=== PATIENT | female | born 1995 | race Caucasian/White ===

== ENCOUNTER 2019-06-30 12:36 | Emergency (ER) | payer MEDICAID, OTHER ==
[~2019-06-30] VITALS: Ht 160 cm; Wt 59.1 kg
[~2019-06-30 12:36] MED LIST: CYCL-1 PO; NO HOME MEDS
[2019-06-30] MEDS ORDERED: LIDOcaine Viscous 15ml cup PO ONE (14:05)
[2019-06-30] MEDS ORDERED: mag hydrox/Alum hydrox/simeth 30ml oral suspension PO ONE (14:05)
[2019-06-30 14:21] VITALS: BP 114/68
== END 2019-06-30 14:24 | disposition home or self-care (01) ==
LOC: ER 12:37
DX: J02.9 Acute pharyngitis, unspecified (principal); F32.9 Major depressive disorder, single episode, unspecified; F17.200 Nicotine dependence, unspecified, uncomplicated; F12.90 Cannabis use, unspecified, uncomplicated; Z88.1 Allergy status to other antibiotic agents; Z79.899 Other long term (current) drug therapy
CPT/HCPCS: 87081; 87880; 99283

== ENCOUNTER 2019-07-08 16:14 | Emergency (ER) | payer MEDICAID, OTHER ==
[~2019-07-08] VITALS: Ht 160 cm; Wt 59.1 kg
[2019-07-08 16:18] VITALS: BP 107/56
[2019-07-08] MEDS ORDERED: SERT50TA PO (16:31)
[2019-07-08] MEDS ORDERED: LORA-269 PO (16:31)
== END 2019-07-08 16:53 | disposition home or self-care (01) ==
LOC: ER 16:15
DX: F32.9 Major depressive disorder, single episode, unspecified (principal); F12.90 Cannabis use, unspecified, uncomplicated; F10.99 Alcohol use, unspecified with unspecified alcohol-induced disorder; Z88.1 Allergy status to other antibiotic agents; Z79.899 Other long term (current) drug therapy; Z76.0 Encounter for issue of repeat prescription; Y90.9 Presence of alcohol in blood, level not specified
CPT/HCPCS: 99283

== ENCOUNTER 2024-03-25 10:10 | Emergency (ER) | payer MEDICAID ==
[~2024-03-25] VITALS: Ht 160 cm; Wt 59.1 kg
[~2024-03-25 10:10] MED LIST changes: -CYCL-1 PO; +DEXT10CA19 PO; +ESCI20TA39 PO; +HYDR-3686 PO; +NAPR-56 PO; -NO HOME MEDS; +ONDA-245 PO; +PROP10TA10 PO
[2024-03-25 10:53] LABS: BASOPHILS % (AUTO) 0.6 % (0-1); EOSINOPHILS % (AUTO) 0.7 % (0-6); HEMATOCRIT 37.3 % (35.0-45.0); HEMOGLOBIN 12.7 g/dl (12.0-16.0); LYMPHOCYTES # (AUTO) 1.2 X10'3 (1.1-4.8); LYMPHOCYTES % (AUTO) 20.8 % (21-51); MEAN CORPUSCULAR HEMOGLOBIN 29.6 PG (27.0-31.0); MEAN PLATELET VOLUME 9.2 FL (7.4-10.4); MONOCYTES # (AUTO) 0.3 X10'3 (0-0.9); NEUTROPHILS # (AUTO) 4.3 X10'3 (1.8-7.7); NEUTROPHILS % (AUTO) 72.9 % (42-75); PLATELET COUNT 246 X10'3 (140-440); RED BLOOD COUNT 4.28 X10'6 (4.20-5.60); RED CELL DISTRIBUTION WIDTH 15.6 % (11.5-14.5); WHITE BLOOD COUNT 5.9 X10'3 (4.5-11.0)
[2024-03-25 11:06] LABS: ALANINE AMINOTRANSFERASE 24 U/L (12-78); ALBUMIN 4.4 G/DL (3.4-5.0); ALBUMIN/GLOBULIN RATIO 1.2 (1.1-1.5); ALKALINE PHOSPHATASE 56 IU/L (46-116); ANION GAP 12 (8-16); ASPARTATE AMINO TRANSFERASE 19 U/L (10-37); BILIRUBIN,TOTAL 1.1 MG/DL (0.1-1.0); BLOOD UREA NITROGEN 9 MG/DL (7-18); BUN/CREATININE RATIO 14.8 (10.0-20.0); CALCIUM 9.5 MG/DL (8.5-10.1); CHLORIDE 103 MMOL/L (99-107); CREATININE 0.61 MG/DL (0.40-0.90); GLUCOSE 109 MG/DL (70-104); LIPASE 42 U/L (16-77); POTASSIUM 3.2 MMOL/L (3.5-5.1); SODIUM 139 MMOL/L (135-145); TOTAL CARBON DIOXIDE 24.5 MMOL/L (24-32); eCRCL 116 ML/MIN; eGFR > 90 ML/MIN
[2024-03-25] MEDS: ketorolac tromethamine 15mg/ml inj. IV ONE (11:53)
[2024-03-25] MEDS: ondansetron/PF 4mg/2ml inj IV ONE (11:53)
[2024-03-25] MEDS: normal saline 1000ml 1,000 ML IV ONE (11:55)
[2024-03-25 12:08] LABS: URINE HCG NEGATIVE (NEG)
[2024-03-25] MEDS ORDERED: iohexol 300mg/ml 100ml inj. ONE (12:12)
[2024-03-25 12:14] LABS: BILIRUBIN,URINE NEGATIVE (Neg); CLARITY,URINE SLIGHTLY CLOUDY (Clear); COLOR,URINE YELLOW (Yellow); GLUCOSE, URINE NEGATIVE (Neg); KETONES,URINE 15 mg/dl (Neg); LEUKOCYTE ESTERASE ,URINE NEGATIVE (Neg); NITRITES, URINE POSITIVE (Neg); OCCULT BLOOD,URINE TRACE-INTACT (Neg); PH,URINE 7.5 (4.8-8.0); PROTEIN,URINE NEGATIVE (Neg); UROBILINOGEN,URINE 0.2 E.U/dL (0.2-1.0)
[2024-03-25 12:21] LABS: UA COLLECTION TYPE CLN CATCH MIDSTREAM
[2024-03-25 12:22] LABS: RBC,URINE 0-2 /HPF (0-2); SQUAMOUS EPITHELIAL CELL,UR MODERATE /LPF (FEW)
[2024-03-25 12:23] LABS: BACTERIA,URINE 4+ /HPF (Neg)
[2024-03-25 13:09] LABS: URINE AMPHETAMINE SCREEN POSITIVE (Neg); URINE BARBITUATE SCREEN NEGATIVE (Neg); URINE BENZODIAZEPINES SCREEN NEGATIVE (Neg); URINE CANNABINOID SCREEN NEGATIVE (Neg); URINE COCAINE SCREEN NEGATIVE (Neg); URINE METHADONE SCREEN NEGATIVE (Neg); URINE OPIATE SCREEN POSITIVE (Neg); URINE PHENCYCLIDINE SCREEN NEGATIVE (Neg)
[2024-03-25] MEDS: CefTRIAXone 2gm/D5W 50ml BAG 50 ML IV ONE (13:26)
[2024-03-25] MEDS ORDERED: CEPH-585 PO (13:50)
[2024-03-25 14:09] VITALS: BP 127/86; PULSE 79; RESP 16; TEMP 98; O2SAT 100
== END 2024-03-25 14:11 | disposition home or self-care (01) ==
LOC: ER 10:10
DX: N39.0 Urinary tract infection, site not specified (principal); K52.9 Noninfective gastroenteritis and colitis, unspecified; R06.02 Shortness of breath; F32.A Depression, unspecified; F12.90 Cannabis use, unspecified, uncomplicated; F19.90 Other psychoactive substance use, unspecified, uncomplicated; Z72.89 Other problems related to lifestyle; Z88.1 Allergy status to other antibiotic agents; Z79.2 Long term (current) use of antibiotics; Z79.899 Other long term (current) drug therapy
CPT/HCPCS: 36415; 74177; 80053; 80305; 81001; 81025; 83690; 85025; 87088; 96361; 96365; 96375; 99285; J0696; J1885; J2405; J7030; Q9967

== ENCOUNTER 2025-08-06 15:04 | Emergency (ER) | payer MEDICAID ==
[~2025-08-06] VITALS: Ht 160 cm; Wt 54.4 kg
[~2025-08-06 15:04] MED LIST changes: -NAPR-56 PO
[2025-08-06 15:11] VITALS: BP 124/88; PULSE 84; RESP 18; TEMP 98.1; O2SAT 100
[2025-08-06] MEDS ORDERED: LIDOcaine 2% Viscous 15ml cup MM PRN (16:05)
[2025-08-06] MEDS ORDERED: AMOX-580 PO (16:22)
--- NOTE | 2025-08-06 16:27 | Physician Documentation ---
HPI ~ General Chief Complaint: Tooth Problem Stated Complaint: TOOTH PAIN Time Seen by MD: 15:33 Primary Medical Doctor: [facility] Medication Reconciliation Allergies: Coded Allergies: vancomycin (Verified Allergy, Unknown, RED MAN SYNDROME, 08/06/25) Scheduled Dextroamphetamine/Amphetamine (Dextroamp-Amphet ER 10 mg Cap), 1 CAP PO QAM, (Reported) Escitalopram Oxalate (Escitalopram Oxalate), 1 TAB PO DAILY, (Reported) Scheduled PRN Hydroxyzine Hcl* (Atarax*), 1-2 TAB PO HS PRN for insomnia, (Reported) Ondansetron 8mg ODT (Ondansetron Odt), 1 TAB PO TID PRN for nausea/vomiting Propranolol Hcl* (Inderal*), 1 TAB PO BID PRN for anxiety, (Reported) Past Medical History Past Medical History: UTI, Depression Past Surgical History: noncontributory Alcohol Use: Occasionally Drug Use: marijuana, other Lives with: Family Lives In: Home Occupation: student Review of Systems ROS As stated above in the HPI, otherwise all systems are reviewed and negative. Physical Exam Vital Signs: Temperature: 98.1, Source: Temporal, Heart Rate: 84, Respiratory Rate: 18, BP: 124/88, Pulse Oximetry: 100, Weight: 54.400 Oxygen Flow Rate: 0 Physical Exam VITALS: Reviewed and as above. GENERAL: Alert, no apparent distress. HEENT: Normocephalic, atraumatic, PERRL, EOMI, dry mucosa, no erythema, adenopathy noted to the left submandibular area, small area of swelling and erythema noted to the 3rd molar possibly extending further back along the gumline, consistent with dental abscess, patient demonstrates significant pain during examination, no swelling noted to the tissues surrounding the neck no difficulty swallowing noted, airway not compromise at this time. RESPIRATORY: Lungs clear, normal breath sounds, no respiratory distress. CHEST: No accessory muscle use, no retractions CV: Regular rate, rhythm, no edema, no murmur, No: JVD GI: Soft, non-tender, bowels sounds present, no rebound, guarding, or rigidity BACK: No CVA tenderness, or swelling MUSCULOSKELETAL No deformities, no edema SKIN: Warm and dry, no rash NEURO: Oriented x4, No motor or sensory deficit PSYCH: Normal mood and affect, no agitation Progress Results/Orders Results/Orders Completed Orders - NAGI JAMES [employer] Hydrox/Simeth Susp (Maalox Or (08/06/25 16:05) Lidocaine 2% Viscous (Xylocaine 2% Visco (08/06/25 16:05) Diphenhydramine Oral Solution (Hydramine (08/06/25 16:15) Vital Signs 08/06/25 15:11 Temp 98.1 Pulse 84 Resp 18 B/P (MAP) 124/88 Pulse Ox 100 O2 Flow Rate 0 Medical Decision Making Additional information obtaine: other Findings 29-year-old at 20 weeks gestation presented with several days of left lower tooth pain, associated with fractured teeth and suspected localized abscess. Exam revealed mild lymphadenopathy, no fever, and no systemic symptoms. She has been self-medicating with acetaminophen and ibuprofen. She is immunocompetent and has scheduled follow-up with her PCP and dentist. Assessment: Localized dental abscess with fractured teeth, mild lymphadenopathy, no systemic involvement. at 20 weeks (second trimester). Medical Decision-Making: Antibiotic therapy: Per [employer] guidelines, antibiotics are indicated for localized acute apical abscess when definitive dental treatment is not immediately available. Amoxicillin-clavulanate (Augmentin) is prescribed to provide enhanced coverage against gram-negative anaerobes that may not respond to amoxicillin alone. Augmentin is category B with no evidence of harm in animal studies and is considered safe during . The addition of clavulanic acid has been associated with increased risk of necrotizing enterocolitis in neonates when used at high doses (?600 mg/day), but this patient is in the second trimester and the standard dosing regimen carries minimal risk. Pain management: NSAIDs and acetaminophen are effective for dental pain per ADA guidelines. Both are considered safe in the second trimester, but NSAIDs should be avoided in the third trimester. The patient should discontinue ibuprofen after 28 weeks gestation. Topical therapy: Magic mouthwash (lvdjwjjoqadyahn-wsxvtwvdw-ysduohs) absorbed into cotton balls will be provided for local pain relief. This formulation has demonstrated efficacy for oral mucosal pain in clinical trials, with antihistaminic, anesthetic, and analgesic properties. Topical application minimizes systemic absorption. While evidence for safety in is limited, topical use is generally considered low risk. Definitive care: Referral to dentist for definitive management (root canal, extraction) is essential and should not be delayed. Monitoring: Patient instructed to monitor for worsening symptoms (fever, facial swelling, trismus, airway compromise) and to seek urgent care if these develop. Patient should be reevaluated within 3 days and instructed to discontinue antibiotics 24 hours after symptoms resolve. Plan: Prescribe oral amoxicillin-clavulanate (Augmentin) 500/125 mg three times daily for 5-7 days. Continue acetaminophen for pain; discontinue ibuprofen after 28 weeks gestation. Magic mouthwash (akvmnvmxmcxtckg-xkhiftcwv-lmofduc) absorbed into cotton balls provided for topical application to affected area for symptomatic relief. Follow-up with dentist and PCP as scheduled. Return to ED for any signs of systemic illness, progression of swelling, or inability to obtain definitive dental care. considerations: Amoxicillin-clavulanate is category B and safe in the second trimester. NSAIDs are safe in the second trimester but contraindicated in the third trimester. Topical agents are generally low risk with minimal systemic absorption. Disposition: Stable for discharge with outpatient follow-up. Written and verbal instructions provided regarding warning signs, medication use, and importance of dental follow-up. Differential Dx:Considerations: Include: Alveolar fracture, Alveolar osteitis, ANUG, Facial Cellulitis, Periapical abscess, Peridontal abscess, Post-extraction bleeding, Pulpitis, Tooth avulsion, Tooth eruption, Tooth Fracture, Trigeminal neuralgia, Tooth subluxation, Other Departure Disposition: 01 HOME / SELF CARE / HOMELESS Impression: Primary Impression: Toothache Additional Impressions: Dental caries Dental abscess Condition: Stable Discharge Instructions: Dental Caries, Adult, Dental Abscess, Dental Pain Additional Instructions: DISCHARGE INSTRUCTIONS FOR DENTAL ABSCESS DURING You were seen today for a tooth infection (dental abscess) with broken teeth. You are currently 20 weeks . Below are important instructions for your care at home. Your Medications: Amoxicillin-clavulanate (Augmentin) 500/125 mg: Take one tablet by mouth three times daily for 5-7 days. This antibiotic is safe during and will treat your tooth infection. Take this medication at the start of meals to improve absorption and reduce stomach upset. Magic mouthwash cotton balls: Apply cotton balls soaked in magic mouthwash dire ctly to the affected tooth for local pain relief. Use as needed for pain. Acetaminophen (Tylenol): You may continue taking acetaminophen as needed for pain. Do not exceed 4,000 mg in 24 hours. Ibuprofen: You may continue ibuprofen until you reach 28 weeks of (approximately 8 weeks from now). STOP taking ibuprofen after 28 weeks due to risks to the baby in the third trimester. When to Discontinue Your Antibiotic: Stop taking the antibiotic 24 hours after your symptoms completely resolve, even if this occurs before you finish all the pills. You should be reevaluated within 3 days of starting treatment. WARNING SIGNS - Seek Immediate Medical Care if You Develop: Fever (temperature ?100.4F or 38C) Worsening or spreading facial swelling, especially involving your neck, under your jaw, around your eye, or difficulty opening your mouth (trismus) Difficulty swallowing or breathing Swelling that crosses to the other side of your face Severe headache with vision changes Your symptoms worsen despite taking antibiotics for 48-72 hours If you experience any of these symptoms, go to the emergency department immediately or call 911. Important Follow-Up: Dentist appointment: You must see a dentist as soon as possible for definitive treatment (root canal or extraction). Antibiotics alone will not cure the infection - the tooth must be treated. Your PCP appointment: Keep your scheduled primary care appointment as planned. Additional Instructions: Continue your regular vitamins and care Maintain good oral hygiene by gently brushing and flossing Rinse your mouth with warm salt water several times daily Get adequate rest and stay well-hydrated Questions or Concerns: If you have questions about your medications or your condition worsens, contact your healthcare provider immediately. Do not delay dental treatment - it is safe and important during . Referrals: NO PRIMARY CARE PROVIDER (PCP) Prescriptions Amox Tr/Potassium Clavulanate 875/125 MG (Augmentin 875/125 MG) 875 Mg-125 Mg Tablet 1 TAB PO Q12H for 10 Days, #20 TAB Prov: NAGI JAMES 08/06/25 Education Educated: Patient Educated regarding: diagnosis, treatment, need for follow up Signature Scribe Signature: A Attestation: Scribed for Nagi James by NORA Mead . 08/06/25 16:28 NAGI JAMES Aug 06, 2025 16:27
[2025-08-06] MEDS: LIDOcaine 2% Viscous 15ml cup MM ONE (17:01)
[2025-08-06] MEDS: mag hydrox/Alum hydrox/simeth 30ml oral suspension PO ONE (17:01)
[2025-08-06] MEDS: diphenhydrAMINE 25 MG/10 ML UD oral solution PO ONE (17:01)
== END 2025-08-06 17:11 | disposition home or self-care (01) ==
LOC: ER 15:05
DX: O9A.213 Injury, poisoning and certain other consequences of external causes complicating pregnancy, third trimester (principal); K04.7 Periapical abscess without sinus; K02.9 Dental caries, unspecified; F32.A Depression, unspecified; F12.90 Cannabis use, unspecified, uncomplicated; F19.90 Other psychoactive substance use, unspecified, uncomplicated; Z88.1 Allergy status to other antibiotic agents; Z79.899 Other long term (current) drug therapy; Z72.89 Other problems related to lifestyle; Z87.440 Personal history of urinary (tract) infections; Z3A.28 28 weeks gestation of pregnancy
CPT/HCPCS: 99284; Q0163

== ENCOUNTER 2025-08-14 15:12 | Emergency (ER) | payer MEDICAID ==
[~2025-08-14] VITALS: Ht 160 cm; Wt 54.5 kg
[~2025-08-14 15:12] MED LIST changes: +AMOX-580 PO
[2025-08-14] MEDS ORDERED: ANBESOL TP (15:34)
--- NOTE | 2025-08-14 15:39 | Physician Documentation ---
HPI ~ General Chief Complaint: Medication Refill Stated Complaint: MED REQUEST Time Seen by MD: 15:26 OK to notify your PCP?: Yes Primary Medical Doctor: [facility] Source: patient Mode of Arrival: POV Exam Limitations: no limitations History of Present Illness HPI Comments Patient returns for pain relief for left lower molar pain. She has been given magic mouth wash when here on 08/06/25 and reports it has been very helpful. She has been taking Tylenol as well for pain. She was prescribed Augmentin which she has been taking as prescribed. She reports that she is in her 2nd trimester of . She has scheduled surgery to have this tooth removed with a dentist on 08/24/2025. There has been no drainage from the site. Medication Reconciliation Allergies: Coded Allergies: vancomycin (Verified Allergy, Unknown, RED MAN SYNDROME, 08/14/25) Scheduled Benzocaine* (Anbesol*), 1 APPLIC TP Q2H Dextroamphetamine/Amphetamine (Dextroamp-Amphet ER 10 mg Cap), 1 CAP PO QAM, (Reported) Escitalopram Oxalate (Escitalopram Oxalate), 1 TAB PO DAILY, (Reported) Scheduled PRN Hydroxyzine Hcl* (Atarax*), 1-2 TAB PO HS PRN for insomnia, (Reported) Ondansetron 8mg ODT (Ondansetron Odt), 1 TAB PO TID PRN for nausea/vomiting Propranolol Hcl* (Inderal*), 1 TAB PO BID PRN for anxiety, (Reported) Discontinued Medications Amox Tr/Potassium Clavulanate 875/125 MG (Augmentin 875/125 MG), 1 TAB PO Q12H Discontinued Reason: Auto Discontinued Past Medical History Past Medical History: UTI, Depression Past Surgical History: noncontributory Alcohol Use: Occasionally Drug Use: marijuana, other Lives with: Family Lives In: Home Occupation: student Review of Systems All Other Systems at this time: Reviewed and Negative Physical Exam Physical Exam Vital Signs: RN Vital Signs have been reviewed: Yes, Temperature: 98.3, Source: Temporal, Heart Rate: 83, Respiratory Rate: 16, BP: 110/35, Pulse Oximetry: 100, Weight: 54.500 Oxygen Flow Rate: 0 Pulse Oximetry Reflects: adequate oxygenation Physical Exam General: Alert, no distress. HEENT: No injection, moist mucous membranes. There is no erythema, edema or drainage from the third molar on the left lower side. Neck: Full range of motion. No cervical lymphadenopathy Respiratory: No respiratory distress, equal chest rise and fall. Chest: No accessory muscle use. Cardiovascular: Regular rate and rhythm. Gastrointestinal: Nondistended. Extremities: Normal range of motion, no deformity. Neurologic: Oriented x4. Psychiatric: Normal mood and affect. Skin: Normal color, warm and dry. Progress Results/Orders Reviewed/noted all lab results: Yes Results/Orders Medical Decision Making Additional information obtaine: old records Findings Requesting refill of magic mouthwash. Magic mouthwash (nwaysfhpgepwtzn-pwcbihgvi-jujloat) absorbed into cotton balls provided for topical application to affected area for symptomatic relief provided to patient. I was unable to order this to the pharmacy so I sent a prescription of benzocaine gel which she can not place to the tooth that is causing the pain. On exam the tooth does not appear to be infected anymore. We discussed following up with her dentist for planned removal. Differential Dx:Considerations: Include: Adverse circumstances, Economic, Medical services unavail., Medication refill, Medication non-compliance Departure Disposition: HOME / SELF CARE / HOMELESS Impression: Primary Impression: Pain Additional Impression: Dental caries Condition: Stable Discharge Instructions: Medicine Refill at the Emergency Department Additional Instructions: Continue with follow up with dentist. Referrals: NO PRIMARY CARE PROVIDER (PCP) Prescriptions Benzocaine* (Anbesol*) 12 Ml Bottle 1 APPLIC TP Q2H for 7 Days, #1 EACH Prov: HALLIE FINK 08/14/25 Education Educated: Patient Educated regarding: diagnosis, treatment, prognosis, need for follow up Additional Comment Medical Screen Exam This patient recieved a medical screening examination. After reviewing the individual's medical complaints with presenting symptoms and performing an appropriate physical examination, it was determined that no immediate life- threatening emergency medical condition is present. This individual is also not a women having contractions. Signature Scribe Signature: . Attestation: Scribed for Hallie Fink by Hallie Reynaga NP . 08/14/25 15:35 Parts of this note were created using [employer] voice recognition software program. While efforts were made to correct any mistakes made by this voice recognition software program, nonsensical phrases may remain in this note. In addition, there may be errors and syntax, grammar, content and spelling. HALLIE FINK Aug 14, 2025 15:39 MED CHAPMAN MD Aug 19, 2025 05:56
[2025-08-14] MEDS: mag hydrox/Alum hydrox/simeth 30ml oral suspension PO ONE (16:04)
[2025-08-14] MEDS: diphenhydrAMINE 25 MG/10 ML UD oral solution PO ONE (16:04)
[2025-08-14] MEDS: LIDOcaine 2% Viscous 15ml cup MM PRN (16:04)
[2025-08-14 16:06] VITALS: BP 132/78; PULSE 87; RESP 16; TEMP 98.2; O2SAT 98
== END 2025-08-14 16:08 | disposition home or self-care (01) ==
LOC: ER 15:12
DX: K02.9 Dental caries, unspecified (principal); F12.90 Cannabis use, unspecified, uncomplicated; Z88.1 Allergy status to other antibiotic agents
CPT/HCPCS: 99284; Q0163